=== PATIENT | male | born 1990 | race Caucasian/White ===

== ENCOUNTER 2017-05-12 18:44 | Emergency (ER) | payer OTHER ==
[2017-05-12 19:08] VITALS: RESP 20
[2017-05-12] MEDS ORDERED: LORAZEPAM 0.5 MG TAB PO ONE (19:15)
[2017-05-12] MEDS ORDERED: LORAZEPAM 0.5 MG TAB ONE (19:17)
[2017-05-12 20:01] VITALS: BP 143/106; PULSE 112; TEMP 97.8; O2SAT 96
== END 2017-05-12 19:40 | disposition home or self-care (01) | DRG 880 ==
LOC: ED 18:44
DX: F41.9 Anxiety disorder, unspecified (principal)
CPT/HCPCS: 99282; A9270-GY